=== PATIENT | male | born 1995 | race Caucasian/White ===

== ENCOUNTER 2020-04-20 13:29 | Emergency (ER) | payer MEDICAID, SELFPAY ==
[2020-04-20 13:30] VITALS: BP 139/89; PULSE 113; RESP 18; TEMP 36.3; O2SAT 96; BMI 44.9
--- NOTE | 2020-04-20 14:27 | CT_ITS ---
STUDY: CT BRAIN WITHOUT CONTRAST REASON FOR EXAM: Male, 24 years old. MIGRAINE RADIATION DOSAGE (If Supplied By Facility): CTDIvol = ( 44.99 ) mGy, DLP = ( 829.85 ) mGycm TECHNIQUE: Transaxial CT imaging of the brain was performed without administration of intravenous contrast material. Individualized dose optimization techniques were used for this CT. COMPARISON: No relevant priors. FINDINGS: Normal soft tissue structures. Normal calvarium. Normal size ventricles and extra-axial spaces for the patient''s age. Normal white matter tracts of the cerebral hemispheres. Normal basal ganglia and thalami. Normal brainstem. Normal cerebellum. There is no intracranial hemorrhage. There are no findings of an acute ischemic infarction. There is mucoperiosteal inflammatory disease of the paranasal sinuses consistent with moderate chronic sinusitis. CT/Brain/Head without Contrast IMPRESSION: No acute intracranial hemorrhage or mass effect. Moderate chronic paranasal sinus disease. Electronically Signed: Lavon Allen MD ([place]) at 15:13 EDT , Service support ,
--- NOTE | 2020-04-20 14:27 | RAD_ITS ---
STUDY: X-RAY CHEST REASON FOR EXAM: Male, 24 years old. MIGRAINE X 2 WEEKS TECHNIQUE: AP COMPARISON: None. FINDINGS: EKG leads project over the chest. The lungs are clear and expanded. There is no demonstrated pleural abnormality. Normal size heart. Normal mediastinum and tequila. Normal visualized pulmonary arteries. Normal visualized aortic arch and descending thoracic aorta. Normal visualized thoracic spine. Normal visualized ribs, clavicles, and shoulders. There is no demonstrated abnormality of the visualized soft tissue structures of the upper abdomen. RAD/Chest 1 View (Portable) IMPRESSION: Nonacute portable x-ray examination of the chest. Electronically Signed: Lavon Allen MD (Bro[place]) at 15:20 EDT , Service support ,
--- NOTE | 2020-04-20 14:27 | EKG12_ITS ---
Test Reason : Blood Pressure : / mmHG Vent. Rate : 085 BPM Atrial Rate : 085 BPM P-R Int : 130 ms QRS Dur : 106 ms QT Int : 378 ms P-R-T Axes : 034 002 031 degrees QTc Int : 449 ms Normal sinus rhythm Cannot rule out Inferior infarct , age undetermined Abnormal ECG Confirmed by ELZA TERAN, ALEXANDER ([id number]), food expeditor HEIDI JOSEPH ([id number]) on 05/01/2020 9:35:37 A M Referred By: ОЛЕГ Confirmed By:KARTIK BERTRAND MD
--- NOTE | 2020-04-20 14:33 | NURSING ---
NO OLD EKGS
[2020-04-20] MEDS: 0.9% Normal Saline 1,000 ML 1000 ML IV (14:41)
[2020-04-20] MEDS: DiphenhydrAMINE 50 MG/ML Syringe 25 MG IV (14:42)
[2020-04-20] MEDS: proCHLORPERazine 10 MG/2 ML Vial IV (14:43)
[2020-04-20 14:59] VITALS: BP 151/88; PULSE 95; RESP 25; O2SAT 95
[2020-04-20 15:10] LABS: Bacteria 0 SEEN /hpf (None Seen); Mucous, Urine 0 SEEN /hpf (<or=2+); Red Blood Cells-Urine 0 SEEN /hpf (0-5); White Blood Cells 0 SEEN /hpf (0-5)
[2020-04-20 15:16] LABS: Color, Urine Yellow (Yellow); Glucose, Dipstick Normal (Normal); Ketone-Dipstick Negative (Negative); Leukocyte Esterase-Dipstick Negative /ul (Negative); Nitrite-Dipstick Negative (Negative); Occult Blood-Urine Negative /ul (Negative); Protein-Dipstick Negative (Negative); Urine Bilirubin Dipstick Negative (Negative); Urine Clarity Sl. Cloudy (Clear); Urine Urobilinogen Normal (Normal)
[2020-04-20 15:34] LABS: Squamous Epithelial Cells - UA 0-5 SEEN /hpf (0-5)
[2020-04-20 15:40] LABS: Absolute Lymphocyte Count 1.71 X10^3/uL (0.83-4.51); Absolute Neutrophil Count 7.3 X10^3/uL (2.0-7.7); Basophil# 0.07 X10^3/uL; Basophil% 0.7 % (0-1); Eosinophil# 0.33 X10^3/uL; Eosinophils% 3.2 % (0-5); Hematocrit 45.3 % (40-54); Hemoglobin 14.6 g/dL (13.0-16.5); Lymphocyte # 1.71 X10^3/ul (4.0); Lymphocyte % 16.5 % (19-41); Mean Corp Hgb Conc 32.2 g/dL (32-36); Mean Corpuscular Hgb 27.8 pg (27.0-32.0); Mean Corpuscular Volume 86.1 fL (80-94); Mean Platelet Vol. 10.8 fl (6.2-12.0); Monocyte# 0.93 X10^3/uL; NRBC Flagged by Analyzer 0 % (0-5); Neutrophil # 7.26 X10^3/uL (2.7-7.7); Neutrophil % 69.7 % (47-70); Platelet Count 250 K/mm3 (150-450); RBC Distribution Width CV 13.4 % (11.6-14.6); Red Blood Count 5.26 M/mm3 (4.6-6.2); White Blood Count 10.4 K/mm3 (4.4-11.0)
[2020-04-20] MEDS: Ketorolac 15 MG/ML Vial IV (15:47)
--- NOTE | 2020-04-20 16:06 | ED.DCSUM_ITS ---
History of Present Illness Chief Complaint: Headache Informant: Patient Onset: Weeks Context: Gradual Onset Timing: Intermittent Narrative: Patient is a 24-year-old male presenting with multiple complaints including head aches, mood swings, dizziness, chest pain and shortness of breath. He notes that about a month ago he had a syncopal episode which he gets from time to time with his hypoglycemia and broke his nose. He states that he was seen at an ER in [facility] for this. He was told his nose was shattered. He did not follow-up with ENT or anyone for this. Since then he has been having the symptoms. He notes his headaches are in the front of his head and throbbing in nature and then of start to radiate to his whole head. He has associated photophobia. The headaches are lasting between 45 minutes to an hour or all day. He currently is complain of a headache. He notes sometimes he starts to get tunnel vision but not had that since he passed out 1 month ago. He is not taking any medications for his symptoms but he states the medication he takes for his seizures, he cannot recall the name of it seems to help with his headaches. In addition patient has been having intermittent episodes of squeezing chest pain. He states it feels like there is something seen on his chest. He states he is currently had this sensation since 7 AM this morning. He does have some mild shortness of breath currently but denies any swelling of his legs. Denies any history of DVT or PE. Finally patient notes that he has had some increased urination as well as thirst. He denies associated nausea and vomiting. States his bowel movements been normal. He is not on any blood thinners. He denies any other complaints at this time. He does mention that he has multiple psychiatric diagnoses include schizophrenia and multiple personality disorder. He is not currently have a psychiatrist is not sure if he wants to be on any medications for these ongoing issues. He is not established with anyone in the area as he recently moved here. Past Medical History - Allergies and Home Meds Allergies/Adverse Reactions: Allergies bee venom protein (honey bee) Allergy (Verified 04/20/20 13:33) Anaphylaxis coconut Allergy (Verified 04/20/20 13:33) Rash hydrocodone Allergy (Verified 04/20/20 13:33) Anaphylaxis Primary Care Physician: Tamie Jenkins MD [STAFF PHYSICIAN] - [facility] [STAFF PHYSICIAN] - Past Medical History: - - Seizure disorder/[place] seizures, hypoglycemia, chronic back pain, schizophrenia, multiple personality disorder, PTSD, obstructive sleep apnea Surgical History: noncontributory Smoking Status: Former smoker Review of Systems General: Denies: Chills, Fever, Sweats Eyes: Denies: Visual changes - bilaterally, Diplopia ENT: Denies: Bilateral ear pain, Rhinorrhea, Sore throat Cardiovascular: Reports: Chest pain. Denies: Palpitations, Heart racing Respiratory: Reports: Dyspnea. Denies: Cough, Dyspnea on exertion Gastrointestinal: Denies: Abdominal pain, Nausea, Vomiting, Diarrhea, Melena, Hematochezia Genitourinary: Denies: Dysuria, Hematuria, Frequency Musculoskeletal: Reports: Back pain - Chronic?unchanged. Denies: Extremity Pain Skin: Denies: Rash, Wounds Neurological: Reports: Headache. Denies: Weakness, Numbness Psych: Reports: - - Mood swings. Denies: Depression, Suicidal thoughts, Suicidal ideations Endocrine: Reports: Polyuria, Polydipsia Physical Exam Vital Signs/Narrative: Vital Signs Temp Pulse Resp BP Pulse Ox 04/20/20 14:59 95 25 H 151/88 H 95 04/20/20 13:30 97.4 F L 113 H 18 139/89 H 96 Inital Vital Signs reviewed: Yes General: Well nourished, Well developed, Obese, No Acute Distress Head: Normocephalic, Atraumatic Eyes: Perrl, EOMI ENT: Moist mucous membranes, No rhinorrhea, TM's clear, - - No hemotympanum. Negative for: Nasal congestion, Sinus tenderness Neck: Supple, Nontender, No JVD, - - No meningeal signs Cardiovascular: Regular rate, Regular rhythm, No murmurs Respiratory: No distress, CTA bilaterally, Chest nontender. Negative for: Wheezing, Diminished Abdomen: Soft, Nontender, Nondistended, Normal bowel sounds. Negative for: Guarding, Rebound tenderness Back: Nontender, Normal Inspection. Negative for: CVA tenderness Extremities: Nontender, No edema Skin: Normal color, No rash Neurological: Alert, Oriented x3, Cranial nerves II-XII grossly intact, Normal Strength, Normal Sensation Psychological: Normal affect, Normal Mood. Negative for: Depressed Diagnostic/Tx/Re-eval Chest X-Ray - ED: 1 View, Read by ED Physician, Read by Radiologist, No Acute Disease Clinical Impression(s) from Imaging Studies Brain CT 04/20/20 14:27 IMPRESSION: No acute intracranial hemorrhage or mass effect. Moderate chronic paranasal sinus disease. Electronically Signed: Lavon Allen MD (Brooks) at 15:13 EDT , Service support , Chest X-Ray 04/20/20 14:27 IMPRESSION: Nonacute portable x-ray examination of the chest. Electronically Signed: Lavon Allen MD (Brooks) at 15:20 EDT , Service support , Laboratory Data 04/20/20 04/20/20 04/20/20 15:00 15:25 15:25 WBC 10.4 RBC 5.26 Hgb 14.6 Hct 45.3 MCV 86.1 MCH 27.8 MCHC 32.2 RDW Std Deviation 42.0 RDW Coeff of Gavino 13.4 Plt Count 250 MPV 10.8 Immature Gran % (Auto) 0.900 Neut % (Auto) 69.7 Lymph % (Auto) 16.5 L [place] % (Auto) 9.0 Eos % (Auto) 3.2 Baso % (Auto) 0.7 Absolute Neuts (auto) 7.3 Absolute Lymphs (auto) 1.71 Nucleated RBC % 0 Sodium 139 Potassium 4.0 Chloride 104 Carbon Dioxide 29.0 Anion Gap 6 BUN 10 Creatinine 0.80 Estim Creat Clear Calc 165.54 Est GFR (MDRD) Af Amer 152 Est GFR (MDRD) Non-Af 125 BUN/Creatinine Ratio 12.5 Glucose 88 Calcium 9.0 Troponin I < 0.015 Urine Color Yellow Urine Clarity Sl. Cloudy Urine pH 7.0 Ur Specific [place] 1.010 Urine Protein Negative Urine Glucose (UA) Normal Urine Ketones Negative Urine Occult Blood Negative Urine Nitrite Negative Urine Bilirubin Negative Urine Urobilinogen Normal Ur Leukocyte Esterase Negative Urine RBC 0 SEEN Urine WBC 0 SEEN Ur Squamous Epith Cells 0-5 SEEN Urine Bacteria 0 SEEN Urine Mucus 0 SEEN - Rhythm Strip Rhythm Strip: Sinus Rhythm Rate: 85 Ectopy: None - EKG Initial EKG Interpretation: Sinus Rhythm, - - Normal sinus rhythm at a rate of 85 Normal axis Normal intervals Normal ST segments - Medical Decision Making Evaluated for multiple complaints headache, chest pain, shortness of breath and dizziness has been going on for about a month. He is also had increased mood swings. Patient does have an extensive psychiatric history I do wonder if some of this might be psychosomatic. However, patient also did hit his head a month ago during a syncopal episode and possibly this week postconcussive. Did obtain a head CT which was negative for any acute process. Work-up including CBC, BMP and troponins all negative. Patient has normal vital signs except for some mild tachycardia. He is given a migraine cocktail including Compazine and Benadryl and then Toradol once his head CT came back negative. He continued to have headaches he was and given a dose of IV Decadron. On reevaluation patient now has improvement of his symptoms. He low risk for ACS.Lab work is all grossly normal and I think patient is stable for outpatient follow-up. He is given referral to PCP as well as crisis. Patient is counseled on signs and symptoms requiring return to the emergency room. Patient verbalizes agreement and understand this plan. Patient discharged home in stable and improved condition. ED Disposition - Plan for ED Patient: Disposition: Home or Assisted Living Diagnosis: Headache, Acute sinusitis, Post concussion syndrome Instructions: ED Concussion, ED Headache Sinus Prescriptions: Fluticasone 0.05% [Flonase Nasal [place]] 2 spray NASAL DAILY 14 Days #1 bottle Transmission Status: Received by [id number] Cetirizine HCl [Zyrtec] 10 mg PO DAILY #14 cap Transmission Status: Received by [id number] Referrals: Tamie Jenkins MD [STAFF PHYSICIAN] - [facility] [STAFF PHYSICIAN] -
[2020-04-20 16:39] LABS: Anion Gap 6 (5-15); BUN 10 mg/dL (7-18); BUN/Creat Ratio 12.5 RATIO (10-20); Chloride 104 mmol/L (98-107); EST Glomerular Filtration Rate 125 mL/min (>60); Est Glom Filt Rate - Afr Amer 152 mL/min (>60); Estimated Creatinine Clearance 165.54 ml/min; Glucose 88 mg/dL (74-106); Sodium Level 139 mmol/L (136-145)
[2020-04-20 16:56] VITALS: PULSE 80; RESP 15; O2SAT 97
[2020-04-20] MEDS: dexAMETHasone 10 MG/ML Vial IV (19:05)
[2020-04-20 19:08] VITALS: RESP 18
[2020-04-20 21:26] VITALS: BP 151/88; RESP 17
== END 2020-04-20 21:28 | disposition home or self-care (01) ==
PROVIDERS: Emergency Provider Emergency Medicine
DX: R51.9 Headache, unspecified (principal); J01.90 Acute sinusitis, unspecified; F07.81 Postconcussional syndrome; E66.9 Obesity, unspecified; Z88.5 Allergy status to narcotic agent; Z87.891 Personal history of nicotine dependence
CPT/HCPCS: 70450; 71045; 80048; 81001; 84484; 85025; 93005; 96361; 96374; 96375; 99283; J7030; A4216